=== PATIENT | male | born 1995 | race Caucasian/White ===

== ENCOUNTER 2016-07-23 18:42 | Emergency (ER) | payer BC, OTHER ==
[2016-07-23 18:58] LABS: CHLORIDE,CL 104 mEq/L (98-106); SODIUM,NA 139 mEq/L (136-145)
[2016-07-23] MEDS ORDERED: fentaNYL 100 MCG/2 ML SDV ONE (19:57)
[2016-07-23] MEDS ORDERED: fentaNYL 100 MCG/2 ML SDV IVPUSH ONE (20:05)
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
[2016-07-23] MEDS ORDERED: fentaNYL 100 MCG/2 ML SDV IM ONE (20:40)
[2016-07-23 21:17] VITALS: BP 120/68
== END 2016-07-23 20:55 ==
LOC: CC.ED 18:42
DX: S32.511A Fracture of superior rim of right pubis, initial encounter for closed fracture (principal); S32.591A Other specified fracture of right pubis, initial encounter for closed fracture; S32.592A Other specified fracture of left pubis, initial encounter for closed fracture; V43.52XA Car driver injured in collision with other type car in traffic accident, initial encounter; Y92.410 Unspecified street and highway as the place of occurrence of the external cause
CPT/HCPCS: 36415; 70450; 71010; 72125; 72170; 73552; 80048; 80305; 81001; 82150; 85025; 85610; 85730; 86850; 86900; 86901; 96372; 96374; 99285; J3010

== ENCOUNTER 2019-03-12 07:25 | Emergency (ER) | payer BC ==
[2019-03-12 07:41] VITALS: BP 131/81; PULSE 99
--- NOTE | 2019-03-12 07:51 | EDM.PDOC ---
ED HPI GENERAL MEDICAL PROBLEM - General Chief Complaint: Laceration Stated Complaint: Head laceration Time Seen by Provider: 03/12/19 07:45 Source of Information: Reports: Patient History Limitations: Reports: No Limitations - History of Present Illness INITIAL COMMENTS - FREE TEXT/NARRATIVE: This patient is a 23 year old male that presents to the ER. Patient reports he was chopping wood with hatchet. He reports he accidently hit himself to the left face of the eye with back of it. Reports did not hurt, but noticed he was bleeding. Denies loc, headache, neck pain, n, v, vision changes, eye pain, or any other complaints. 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 Denies: Confusion, Headaches, Nausea/Vomiting, Seizure, Syncope 3 Pain Score (Numeric/FACES): 3 - Related Data Allergies Allergy/AdvReac Type Severity Reaction Status Date / Time No Known Allergies Allergy Verified 03/12/19 08:04 Home Meds: Home Meds . [No Known Home Meds] 07/23/16 [History] Past Medical History - Past Health History Medical/Surgical History: Denies Medical/Surgical History Social & Family History - Living Situation & Occupation Living situation: Reports: Single Occupation: Employed ED ROS GENERAL - Review of Systems Review Of Systems: See Below Constitutional: Reports: No Symptoms HEENT: Reports: No Symptoms. Denies: Vision Change GI/Abdominal: Reports: No Symptoms. Denies: Nausea, Vomiting Musculoskeletal: Reports: No Symptoms Skin: Reports: Wound Neurological: Reports: No Symptoms. Denies: Dizziness, Headache, Seizure, Syncope, Trouble Speaking, Gait Disturbance Psychiatric: Reports: No Symptoms Hematologic/Lymphatic: Reports: No Symptoms ED EXAM, SKIN/RASH Exam: See Below Exam Limited By: No Limitations General Appearance: Alert, WD/WN, No Apparent Distress Eye Exam: Bilateral Eye: EOMI, Normal Inspection, PERRL Ears: Normal External Exam, Normal Canal, Hearing Grossly Normal, Normal TMs Nose: Normal Inspection, Normal Mucosa, No Blood Throat/Mouth: Normal Inspection, Normal Lips, Normal Teeth, Normal Gums, Normal Oropharynx, Normal Voice, No Airway Compromise Head: Other (laceration left of eye, left upper cheeck). No: Facial Swelling, Facial Tenderness, Sinus Tenderness Neck: Normal Inspection, Supple, Non-Tender, Full Range of Motion Respiratory/Chest: No Respiratory Distress, Lungs Clear, Normal Breath Sounds, No Accessory Muscle Use Cardiovascular: Normal Peripheral Pulses, Regular Rate, Rhythm, No Edema, No Gallop, No JVD, No Murmur, No Rub Peripheral Pulses: 2+: Radial (L), Radial (R) Extremities: Normal Inspection Neurological: Alert, Oriented, Normal Cognition, Normal Gait, No Motor/Sensory Deficits Psychiatric: Normal Affect, Normal Mood Skin: Warm, Dry, Normal Color, No Rash, Wound/Incision Location, Skin: Face (left of eye, at superior left cheeck laceration) Lymphatic: No Adenopathy ED SKIN PROCEDURES - Laceration/Wound Repair Left Upper Side Face Appearance: Superficial Distal NVT: Neuro & Vascular Intact, No Tendon Injury Skin Prep: Chlorhexidine (Hibiciens) Saline Irrigation (cc's): 10 Exploration/Debridement/Repair: Wound Explored, In a Bloodless Field, Explored to Base, No Foreign Material Found, Wound Margins Revised Closed with: Wound Adhesive Lac/Wound length In cm: 0.5 Tetanus Status Addressed: Yes Complications: No Course - Vital Signs Last Recorded V/S: Last Vital Signs Temp 97.8 F 03/12/19 07:36 Pulse 99 03/12/19 07:36 Resp 18 03/12/19 07:36 BP 131/81 03/12/19 07:36 Pulse Ox 100 03/12/19 07:36 - Orders/Labs/Meds Orders: Active Orders 24 hr Category Date Time Status Vaccines to be Administered [RC] PER UNIT ROUTINE Care 03/12/19 07:45 Active Meds: Medications Discontinued Medications Generic Name Dose Route Start Last Admin Trade Name Freq PRN Reason Stop Dose Admin Diphtheria/Tetanus/Acell Pertussis 0.5 ml 03/12/19 07:45 03/12/19 07:54 Adacel IM 03/12/19 07:46 0.5 ml .ONCE ONE Administration Departure - Departure Time of Disposition: 07:50 Disposition: Home, Self-Care 01 Condition: Good Clinical Impression: Laceration - Discharge Information *PRESCRIPTION DRUG MONITORING PROGRAM REVIEWED*: Not Applicable *COPY OF PRESCRIPTION DRUG MONITORING REPORT IN PATIENT ANGELA: Not Applicable Instructions: Laceration Care, Adult, [id number], Stitches, [place], or Adhesive Wound Closure, [id number] Referrals: PCP,None [Primary Care Provider] - Forms: ED Department Discharge Additional Instructions: Followup with primary care provider as needed Return as needed Keep wound dry Keep wound clean If redness, drainage, fever, vomiting occurs, please return to the ER or clinic right away Keep glue wound area dry for at least 24 hours, prefer 48 hours. Do not touch it You were given Tetanus in the ER Sepsis Event Note - Evaluation Sepsis Screening Result: No Definite Risk - Focused Exam Date Exam was Performed: 03/12/19 Time Exam was Performed: 22:29 - My Orders Last 24 Hours: My Active Orders 03/12/19 07:45 Vaccines to be Administered [RC] PER UNIT ROUTINE - Assessment/Plan Last 24 Hours: My Active Orders 03/12/19 07:45 Vaccines to be Administered [RC] PER UNIT ROUTINE Plan: Please see RN terell for pfsh.
[2019-03-12] MEDS: Diphtheria,Pertussis(Acell),Tetanus Vaccine 0.5 ML Syringe IM ONE (07:54)
== END 2019-03-12 08:05 | disposition home or self-care (01) ==
LOC: CC.ED 07:25
DX: S01.81XA Laceration without foreign body of other part of head, initial encounter (principal); Z23 Encounter for immunization; W27.0XXA Contact with workbench tool, initial encounter; Y93.89 Activity, other specified
CPT/HCPCS: 12011; 90471; 90715; 99282

== ENCOUNTER 2024-08-31 10:15 | Emergency (ER) | payer SELFPAY ==
[2024-08-31] MEDS: Orphenadrine 60 MG/2 ML Inj IM ONE (11:01)
[2024-08-31] MEDS: Ketorolac 30 MG/ML SDV IM ONE (11:02)
[2024-08-31 11:10] VITALS: BP 120/72; PULSE 91
== END 2024-08-31 11:34 | disposition home or self-care (01) ==
LOC: CC.ED 10:15
DX: M54.50 Low back pain, unspecified (principal); F17.210 Nicotine dependence, cigarettes, uncomplicated; Z79.899 Other long term (current) drug therapy
CPT/HCPCS: 72100; 96372; 99283; J1885; J2360